=== PATIENT | male | born 1990 | race American Indian/Alaskan Native ===

== ENCOUNTER 2018-11-29 20:10 | Emergency (ER) | payer BC, OTHER ==
--- NOTE | 2018-11-29 21:17 | Emergency Department Report ---
HPI - General Chief Complaint: Upper Respiratory Infection Time Seen by Provider: 11/29/18 21:04 - HPI HPI: Room 29 The patient is a 28-year-old male presenting with a chief complaint of cough and facial congestion. The patient states for the past 6 days is a cough productive of yellow sputum and passing yellow mucus from his nose. Patient states the mucous has a bad taste. Patient denies history of fever. Patient also complains of painful left foot after he accidentally dropped a box on it one month ago ED Past Medical Hx - Past Medical History Previous Medical History?: No - Surgical History Past Surgical History?: No - Family History Family history: no significant - Social History Smoking Status: Former Smoker (none 5 days) Substance Use Type: None (denies illicit drug use), Alcohol (occasional) - Medications Home Medications: Home Medications Medication Instructions Recorded Confirmed Last Taken Type Azithromycin [Zithromax Z-JULITO] 0 mg PO DAILY #6 tab 11/29/18 Unknown Rx Ibuprofen [Motrin 800 MG tab] 800 mg PO Q8HR PRN #20 tablet 11/29/18 Unknown Rx traMADol [Ultram] 50 mg PO Q6HR PRN #20 tablet 11/29/18 Unknown Rx ED Review of Systems ROS: Stated complaint: SINUS PAIN Other details as noted in HPI Constitutional: denies: fever Eyes: denies: eye pain ENT: congestion Respiratory: cough Cardiovascular: denies: chest pain Endocrine: no symptoms reported Gastrointestinal: denies: abdominal pain Genitourinary: denies: dysuria Musculoskeletal: denies: back pain Neurological: denies: headache Physical Exam - Physical Exam Physical Exam: GENERAL: The patient is well-developed well-nourished male lying on stretcher not appearing to be in acute distress. [] HEENT: Normocephalic. Atraumatic. Extraocular motions are intact. Patient has moist mucous membranes. NECK: Supple. Trachea midline CHEST/LUNGS: Clear to auscultation. There is no respiratory distress noted. HEART/CARDIOVASCULAR: Regular. There is no tachycardia. There is no gallop rub or murmur. ABDOMEN: Abdomen is soft, nontender. Patient has normal bowel sounds. There is no abdominal distention. SKIN: There is no rash. There is no edema. There is no diaphoresis. NEURO: The patient is awake, alert, and oriented. The patient is cooperative. The patient has normal speech MUSCULOSKELETAL: There is tenderness to the lateral aspect of the proximal left foot. No deformity seen. There is no evidence of acute injury. ED Medical Decision Making - Radiology Data Radiology results: report reviewed (chest x-ray, left foot x-ray), image reviewed (chest x-ray, left foot x-ray) interpreted by me: Chest x-ray-no focal infiltrates, no pneumothorax Left foot x-ray-no acute fracture [address] [address] XRay Report Signed Patient: RICCO AGUILERA MR#: [id number] : 1990 Acct:[id number] Age/Sex: 28 / M ADM Date: 11/29/18 Loc: ED Attending Dr: Ordering Physician: RADHA CASTAÑEDA MD Date of Service: 11/29/18 Procedure(s): XR chest routine 2V Accession Number(s): [id number] cc: RADHA CASTAÑEDA MD Fluoro Time In Minutes: CHEST 2 VIEWS INDICATION / CLINICAL INFORMATION: cough. COMPARISON: None available. FINDINGS: SUPPORT DEVICES: None. HEART / MEDIASTINUM: No significant abnormality. LUNGS / PLEURA: No significant pulmonary or pleural abnormality. No pneumothorax. ADDITIONAL FINDINGS: No significant additional findings. IMPRESSION: 1. No acute findings. Signer Name: Elías Phillip MD Signed: 11/29/2018 9:42 PM Workstation Name: [id number] Transcribed By: BC Dictated By: Elías Phillip MD Electronically Authenticated By: Elías Phillip MD Signed Date/Time: 11/29/182141 DD/ 41 TD/TT: [address] [address] XRay Report Signed Patient: RICCO AGUILERA MR#: [id number] : 1990 Acct:[id number] Age/Sex: 28 / M ADM Date: 11/29/18 Loc: ED Attending Dr: Ordering Physician: RADHA CASTAÑEDA MD Date of Service: 11/29/18 Procedure(s): XR foot 2V LT Accession Number(s): [id number] cc: RADHA CASTAÑEDA MD Fluoro Time In Minutes: Left foot 2 views INDICATION: Left foot pain following injury IMPRESSION: No fracture or subluxation of the left foot is identified. Signer Name: Elías Phillip MD Signed: 11/29/2018 9:42 PM Workstation Name: [email or web address] Transcribed By: BC Dictated By: Elías Phillip MD Electronically Authenticated By: Elías Phillip MD Signed Date/Time: 11/29/182141 DD/ 41 TD/TT: - Differential Diagnosis sinusitis, bronchitis, foot contusion, foot fracture Critical care attestation.: If time is entered above; I have spent that time in minutes in the direct care of this critically ill patient, excluding procedure time. ED Disposition Clinical Impression: Acute bronchitis, Sinusitis, Contusion of left foot Disposition: - TO HOME OR SELFCARE Is pt being admited?: No Does the pt Need Aspirin: No Condition: Stable Instructions: Acute Bronchitis (ED) Prescriptions: Ibuprofen [Motrin 800 MG tab] 800 mg PO Q8HR PRN #20 tablet PRN Reason: Pain, Moderate (4-6) traMADol [Ultram] 50 mg PO Q6HR PRN #20 tablet PRN Reason: Pain Azithromycin [Zithromax Z-JULITO] 0 mg PO DAILY #6 tab Referrals: JULIO JENKINS MD [Staff Physician] - 3-5 Days [facility] [Outside] - 3-5 Days Time of Disposition: 21:54
--- NOTE | 2018-11-29 21:46 | XRay Report ---
CHEST 2 VIEWS INDICATION / CLINICAL INFORMATION: cough. COMPARISON: None available. FINDINGS: SUPPORT DEVICES: None. HEART / MEDIASTINUM: No significant abnormality. LUNGS / PLEURA: No significant pulmonary or pleural abnormality. No pneumothorax. ADDITIONAL FINDINGS: No significant additional findings. IMPRESSION: 1. No acute findings. Signer Name: Elías Phillip MD Signed: 11/29/2018 9:42 PM Workstation Name: [id number]
--- NOTE | 2018-11-29 21:47 | XRay Report ---
Left foot 2 views INDICATION: Left foot pain following injury IMPRESSION: No fracture or subluxation of the left foot is identified. Signer Name: Elías Phillip MD Signed: 11/29/2018 9:42 PM Workstation Name: [email or web address]
[2018-11-29 22:22] VITALS: BP 122/60
== END 2018-11-29 22:28 | disposition home or self-care (01) ==
LOC: ED 20:10
DX: S90.32XA Contusion of left foot, initial encounter (principal); J20.9 Acute bronchitis, unspecified; J32.9 Chronic sinusitis, unspecified; Z87.891 Personal history of nicotine dependence; X58.XXXA Exposure to other specified factors, initial encounter; Y93.89 Activity, other specified; Y92.89 Other specified places as the place of occurrence of the external cause; Y99.8 Other external cause status
CPT/HCPCS: 71046